=== PATIENT | female | born 1990 | race Caucasian/White ===

== ENCOUNTER 2024-07-26 00:19 | Day surgery (SDC) | payer OTHER, SELFPAY ==
[2024-07-21 08:22] VITALS: BMI 22.7
--- NOTE | 2024-07-21 08:33 | PC.NURSE ---
Report to the Outpatient Waiting Room, entrance under the green pavilion located off [facility], at time 1130 on date 07/26/2024. Planned Procedure Time: 1330.? Time changes happen often and if your time is changed the preop area will call you the afternoon before. - You and your visitor will be asked to self-screen and do not enter if you have any COVID symptoms. Please call surgeon if you need to reschedule. - A mask is optional within the hospital at this time. Patients may have clear liquids (water, carbonated beverages, clear teas, apple juice) until 3 hours prior to surgery with a maximum of 20 ounces. - No food from midnight until time of surgery and no smoking, or chewing tobacco (or any form of nicotine). No chewing gum, candy or mints. Take only the following medications with a SIP of water on the morning of surgery: N/A DO NOT STOP ANY OF YOUR OTHER PRESCRIPTION MEDICATIONS PRIOR TO SURGERY EXCEPT THE FOLLOWING Hold all vitamins and supplements for 3 days per anesthesiologist. Medications to discontinue per physician: Magnesium- Per patient stopping 07/21/2024 Please no make-up, nail andorran, hairspray, perfume, deodorant, or body powder the day of surgery.? No jewelry (including any body piercings) or valuables the day of surgery, leave them at home.? Please take a shower or bath the night before, or the morning of, surgery with an antibacterial soap.? Wear comfortable, loose fitting clothing.? Children are encouraged to wear pajamas. - Jewelry must be removed prior to entering the operating room.? Rings and piercings that are not removed may be cut off. - The hospital will not accept responsibility for valuables.? - Please leave all valuables, including medications, at home the day of surgery. If you are going home after surgery, a licensed pile driver operator must drive you home.? - NO public transportation without another adult if you receive anesthesia. - We recommend that an adult stay with you for 24 hours following discharge. - We also recommend that you do not drive, make important decision, drink alcoholic beverages, or take any drugs that were not prescribed by your health care provider for at least 24 hours after your discharge time. Follow any additional instructions given to you from your surgeon. Telephone instructions given to ____Patient and asked if any additional questions and then verbalized understanding. Patient advised to call surgeon office or pre surgery nurse liaison [phone] if any additional questions.
[2024-07-26] VITALS (9 sets, daily range): BP systolic 100–131; BP diastolic 64–82; PULSE 63–95; RESP 14–18; TEMP 36.6–36.9; O2SAT 95–100
--- OUTSIDE RECORDS SUMMARY | 2024-07-26 00:21 | XMS_ITS | Continuity of Care Document ---
Author Organization [facility] Address [address] [place] [address] Phone Care Team Providers Care Photolithographer Name Role Phone Fernando Sim NP Unavailable Unavailable Allergies, Adverse Reactions, Alerts Substance Reaction Status Criticality No Known Allergies Active No Inform ation Medications Medication Instructions Dosage Effective Dates (start - stop) Status Comments sertraline 50 mg tablet take 1 tablet by oral route every day 50 MG - Active Procedures Procedure Date URINALYSIS NONAUTO W/O SCOPE OFFICE/OUTPATIENT VISIT, EST OFFICE/OUTPATIENT VISIT, EST Rapid COVID OFFICE/OUTPATIENT VISIT, EST Rapid COVID OFFICE/OUTPATIENT VISIT, EST URINALYSIS NONAUTO W/O SCOPE OFFICE/OUTPATIENT VISIT, EST OFFICE/OUTPATIENT VISIT, EST OFFICE/OUTPATIENT VISIT, EST OFFICE/OUTPATIENT VISIT, EST Advance Directives Directive Yes / No Effective Date File Name No Information Encounters Encounter Description Practice Location Reason(s) For Visit Diagnoses Date Provider Providers Copied on Encounter [facility], [address] [place] [address], [facility], tel:[phone] Rex No Information 4 Roney King. [address] [place] [address], [facility], . tel:[phone] OFFICE/OUTPA TIENT VISIT, EST [facility], [address] [place] [address], [facility], [place] [phone] Rex UTI (chief complaint) Painful micturition, unspecifiedUri nary symptom or signSuprapubic painUrinary tract infection in female 4 Roney Fernando. [address] [place] [address], [facility], [place]. tel:[phone] OFFICE/OUTPA TIENT VISIT, [facility], [address] [place] [address], [facility], [place] [phone] [facility] est care (chief complaint) Generalized anxiety disorderEncoun ter to establish careSyncope, unspecified syncope typeEncounter for lipid screening for cardiovascular disease 3 Tevin Ordoñez. [address] [place] [address], [facility], [place]. tel:[phone] OFFICE/OUTPA TIENT VISIT, [facility], [address] [place] [address], [facility], [place] [phone] Rex COVID TEST (chief complaint) Contact With And (suspected) Exposure To COVID-19 2 Rhiannajosepratik Durbin. [address] [place] [address], [facility], [place]. tel:[phone] OFFICE/OUTPA TIENT VISIT, [facility], [address] [place] [address], [facility], [place] [phone] Rex COUGH (chief complaint) COVID SYMPTOMS (chief complaint) COVID-19 2 Farrah Bowden. [address] [place], [address], [place]. tel:[phone] OFFICE/OUTPA TIENT VISIT, [facility], [address] [place] [address], [facility], [place] tel:[phone] [facility] UTI (chief complaint) Cramping/F req (chief complaint) Urinary tract infection, site not specified 9 Jesus Simmons. [address] [place] [address], [facility], [place]. tel:[phone] OFFICE/OUTPA TIENT VISIT, [facility], [address] [place] [address], [facility], tel: [phone] [facility] HEADACHES. . (chief complaint) Acute sinusitis 8 Jesus Simmons. [address] [place] [address], [facility], . tel:[phone] OFFICE/OUTPA TIENT VISIT, [facility], [address] [place] [address], [facility], tel:[phone] Rex Cough (chief complaint) Upper respiratory infection, acute 6 Carly Valles. [address] [place] [address], . tel:[phone] OFFICE/OUTPA TIENT VISIT, [facility], [address] [place] [address], [facility], tel:[phone] [facility] Sore throat (chief complaint) fever (chief complaint) Sinusitis 5 Jesus Iris. [address] [place] [address], [facility], . tel:[phone] [facility], [address] [place] [address], [facility], tel:[phone] [facility] No Information Nov-0 3 No Information Family History Family Member Type Diagnosis Age At Onset Father Problem (finding) hypertension Maternal grandmother Problem cancer Father Problem (finding) Pacemaker Mother Problem (finding) malignant neop lasm of breast in first degree relative Father Problem heart attack Maternal grandmother Problem Diabetes mellitus Paternal grandmother Problem Diabetes mellitus Mother Problem Mental disorder Mother Problem (finding) manic-depressive state Immunizations Vaccine Date Status Comments flu (split) (3 yrs or older) preservative free administered Source: Other Regist ry flu (split) (3 yrs or older) preservative free administered Source: Other Regist ry HPV (quadrivalent) administered Source: O ther Registry HPV (quadrivalent) administered Source: O ther Registry flu (split) (3 yrs or older) preservative free administered Source: Other Regist ry flu (split) (3 yrs or older) preservative free administered Source: Other Regist ry flu (split) (3 yrs or older) preservative free administered Source: Other Regist ry Payers Payer name Insurance type Covered democrat ID Authoriza tion(s) No Information Social History Type Description Quantity Date Captured Comments Alcohol Use Details Unknown Caffeine Use Details Unknown Tobacco Use Status No Information Smoking Status No Information Sex Female Chief Complaint And Reason For Visit No Information Reason For Referral Reason For Referral No Information Plan Of Treatment Date Type Action Status Goal HPV. Due on due Goal Influenza vaccine. Due on due Goal Pap/HPV testing. Due on due Goal Unhealthy drug u se screening. Due on due Goal Hepatitis C scre ening. Due on due Goal Depression scree klaus. Due on due Goal Tdap. Due on due Goal Td vaccine. Due on due Goal Hepatitis C scre ening. Due on due Goal Tdap. Due on due Goal Influenza vaccine. Due on due Goal Depression scree klaus. Due on due Goal Unhealthy drug u se screening. Due on due Goal HPV. Due on due Goal Td vaccine. Due on due Goal Pap/HPV testing. Due on due Goal Unhealthy drug u se screening. Due on due Goal HPV. Due on due Goal Hepatitis C scre ening. Due on due Goal Pap/HPV testing. Due on due Goal Influenza vaccine. Due on due Goal Tdap. Due on due Goal Td vaccine. Due on due Goal Depression scree klaus. Due on due Goal Influenza vaccine. Due on due Goal Pap/HPV testing. Due on due Goal Depression scree klaus. Due on due Goal Td vaccine. Due on due Goal HPV (1st) due Goal Tdap. Due on due Patient Education Urinary Tract Infection in Women: Care Instructions completed Patient Education Cholesterol an d Triglycerides Tests: About These Tests completed Patient Education Coronavirus Disease ([place] VID-19): Care ~ completed Future Order: Lab Order CBC W/DI FF ([id number]), Sent on: Sent Future Order: Lab Order CMP ([id number]), Se nt on: Sent Future Order: Lab Order LIPID PA EUGENIO ([id number]), Sent on: Sent Future Order: Lab Order TSH REFL EX FREE T4 ([id number]), Sent on: Sent History Of Present Illness Encounter Date Complaint History Of Prese nt Illness Comments: (The p atient is a 33-year-old female with a medical history of anxiety that presents to clinic with complaints of urinary frequency, painful urination, suprapubic pressure, urgency for the past 7 days. Aggravating factors urination, relieving factors none, treatments tried increasing water intake remedies. Patient denies chest pain, shortness of breath, fever, vomiting, focal changes, flank pain, change in bowel habitus consistency, chance of STIs, increased vaginal discharge, or any other acute symptoms.) UTI Onset: 7 Days. T he severity of the problem is moderate. Pain scale: 5/10. The problem has not changed. The symptoms are recurring. Presenting/Initial symptoms include abdominal pain, dribbling, dysuria, frequency, lower back pain and urgency. Symptoms are associated with recurring urinary tract infections. Symptoms are not associated with diabetes, or recent catheterization. Aggravating factors include urination. Symptoms are relieved by increased fluids and rest. Associated symptoms include abdominal pain, dribbling, dysuria, frequency, pelvic pain, pressure and urgency. Pertinent negatives include fever. Additional information: increased water intake & cranberry juice. Comments: 31 yea r old female patient presents today to [facility] care. Previously patient saw Dr. Larry for primary care. A complete medical, surgical, family, and social history were reviewed with patient and documented. Patient has dental exams yearly, she has not had an eye exam for a few years, she plans to have one soon. Patient is up to date on preventative screenings and vaccines. Patient does not use illicit drugs, tobacco, or drink alcohol. A comprehensive review of systems and exam were also completed today. Patient's current medications were reviewed. Patient has no current complaints today.She does mention that she had a visit to [facility] ER last weekend due to having a syncopal event while taking a shower. While in the ER she become nauseated as well. She was given IV fluids and sent home. Later her MEDICAL SURGERY NURSE called her stating that he had received her records from the ER and her EKG was abnormal, he then sent her to a street engineer. She saw her street engineer yesterday and her repeat EKG was normal, she is now scheduled for an echo in September. She continues to feel slightly weak and dizzy at times. She has had no other syncopal events. She plans to follow up with her street engineer, have fasting labs completed, and then follow up at this office. She has no other concerns today. [facility] COVID TEST Pt presents for COVID test for work. Pt has to be present a negative COVID test for work to be able to travel to [place]. Pt is vaccinated x3. COVID TEST (comments) Sabrina is a 31-year old female who presents to the clinic today needing a Covid test for work. She states that she is needing a Covid test to be able to travel to [place] for her job. She is asymptomatic. She has been vaccinated with booster. She offer no other concerns or complaints at this time. COUGH COVID SYMPTOMS PT PRESENTS WITH COUGH, TIGHTNESS IN CHEST, NO FEVER, FATIGUE, DENIES EXPOSURE AND HAS BEEN VACCINATED. HER SECOND VACCINATION WAS LAST THURSDAY.RAPID COVID POSITIVE. COUGH (comments) Pt presents to the clinic with complaints of a non productive cough, chest tightness, and fatigue for 1 day. Pt states that she recently received her second covid vaccine on Thursday. PT denies any chance of but states that she is currently breast feeding. PT denies fever, sob, wheezing. UTI Cramping/Freq Pt here to see P sidney for sudden onset 3 days ago with cramping and frequency. She has been drinking cranberry juice and extra fluids with no improvement. Pt states she has had UTI in the past and most relieves with increased fluids. jose FRAGA HEADACHES.. Patient states t hat for past few days she has been experiencing very bad headaches behind both ears. She gets very nauseated and lethargic feeling with them also. She has never experienced bad headaches such as these before. HEADACHES.. (comments) Patient p resents today with complaints of headaches. She reports that she very rarely has headaches and if she does they are never like these. She reports it feels like there is a bar driving through her head behind both ears. She does state the headaches are worse when she leans forward. She states that Aleve helps with the headaches but the headaches come back within a couple hours. At the worst headaches are rated at a 7 out of 10. She does complain of nausea with the headaches and some vision changes while she has the headaches. She states that bright light makes it worse and that she does have some sound and light sensitivity with the headaches. 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 She reports that the headache yesterday was the worst one she has had and yesterday she had a very bad day at work. Cough Onset: 10 days a go. The patient describes the cough as barking, hacking and productive (of clear sputum). It occurs persistently. The problem has not changed. Symptoms are aggravated by cold air, exertion, laughing and lying down. There are no relieving factors. Associated symptoms include chills, cough, dyspnea, dyspnea on exertion, fatigue, fever, hemoptysis, hoarseness, night sweats, post-nasal drainage, rhinitis, sinus pressure and wheezing. Pertinent negatives include epistaxis, heartburn, nasal congestion, pleuritic pain, rhinorrhea, sore throat and weight loss. The patient has a history of allergies. The patient does not have a history of asthma. Additional information: She was seen at [facility] on 02/11/16 and given 5 days of Amoxicillin & cough med she finished all her meds on 02/15/16 with no improvemnet at all. fever Additional infor jessika: Sinus pain and pressure, body aches, ear pressure, sorethroat, hard to swallow and fever, started Thursday evening. Sore throat Functional Status Date Functional Assessmen t No Information Instructions Date Instruction Additional Infor mation Take antibiotic as d irected, take all medication even if improved. Drink plenty of fluids especially water, wipe front to back, avoid douching, empty the bladder before and immediately following sexual intercourse, and avoid tight fitting clothing. Avoid irritants such as scented feminine products, scented pads or tampons, and scented bath soaps. Monitor for worsening signs and symptoms, return to the clinic or present to the emergency room should your condition worsen. Related to Urinary tract infection in female Continue home medica tion. Continue follow up with street engineer. Have labs completed soon. Continue to observe for worsening signs and symptoms and seek care as needed. Related to Generalized anxiety disorder Rapid Covid is negat joel.Work note with results given to patient.Follow up with PCP or return to clinic as needed. Related to Contact With And (suspected) Exposure To COVID-19 Report to the ER if sx persist. Related to COVID-19 Tylenol and vitamins as directed Related to COVID-19 Rest, increase intake of fluids. Related to COVID-19 Self isolate for 10 days. Relate d to COVID-19 Cleanse from front to back Relat ed to Urinary tract infection, site not specified Observe for persiste nt or worsening symptoms Related to Urinary tract infection, site not specified Empty bladder frequently Related to Urinary tract infection, site not specified Increase fluids Related to Urina ry tract infection, site not specified Medications as discussed Related to Urinary tract infection, site not specified Void before and after intercours e Related to Urinary tract infection, site not specified Use only unscented products Rela jose carlos to Urinary tract infection, site not specified If symptoms not impr simba in 7 days repeat urinalysis Related to Urinary tract infection, site not specified Patient instructed o n use of Flonase or Nasacort. Related to Acute sinusitis Educated on use of antibiotic Re lated to Acute sinusitis RTC for symptoms fern t persist or worsen in one week Related to Acute sinusitis Observe for medication side effe cts Related to Acute sinusitis OTC sinus medications as discuss ed Related to Acute sinusitis reccomended CXR pt would rather wait Related to Upper respiratory infection, acute take medication as p rescribed, f/u with PMD rtc or ER if SOB Related to Upper respiratory infection, acute increase fluids Related to Upper respiratory infection, acute Antibiotic as discussed Related to Sinusitis Nasal spray as discussed. Relate d to Sinusitis Assessments Type Assessment Date No Information Patient Care Teams Name Effective Dates (start - stop) Status Members No Information
--- OUTSIDE RECORDS SUMMARY | 2024-07-26 00:21 | XMS_ITS | Clinical Summary ---
Author Organization [facility] Address [facility] [place] [address] Care Team Providers Care Forestry Technical Officer Name Role Phone Luis Saleh MD Unavailable [phone] Hoda Chiu MD Unavailable Smita Abarca NP Primary Care Provider [phone] Allergies No known active allergies Medications hydrOXYzine (ATARAX) 25 MG tablet Take 1 tablet (25 mg total) by mouth as needed. 08/12/2022 Active sertraline (ZOLOFT) 50 MG tablet Take 1 tablet (50 mg total) by mouth daily. 08/12/2022 Active Active Problems No known active problems Family History Medical History Relation Comments Heart Attack Father Stroke Maternal Grandfather Atrial fibrillation Sister 1 Open Heart Sister 2 Relation Status Comments Father Maternal Grandfather Sister 1 Sister 2 Social History Tobacco Use Types Packs/Day Years Used Date Smoking Tobacco: Never Alcohol Use Standard Drinks/Week Comments Yes 0 (1 standard drink = 0.6 oz pur e alcohol) socially Comments Unknown Sex and Gender Information Value Date Recorded Sex Assigned at Female 08/12/2022 1:58 PM CDT Legal Sex Female 4:18 PM CDT Gender Identity Female 08/12/2022 1:58 PM CDT Sexual Orientation Straight 08/12/2022 1: 58 PM CDT 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 on file Not on file Not on file Last Filed Vital Signs Vital Sign Reading Time Taken Comments Blood Pressure 112/72 08/14/2022 8:27 AM CDT Pulse 71 08/14/2022 8:26 AM CDT Temperature - - Respiratory Rate 18 08/14/2022 8:26 AM CDT Oxygen Saturation 100% 08/14/2022 8:26 AM CDT Inhaled Oxygen Concentration - - Weight 62.4 kg (137 lb 9.6 oz) 08/14/2022 8:26 A M CDT Height 170.2 cm (5' 7 ) 08/14/2022 8:26 AM CDT Body Mass Index 21.55 08/14/2022 8:26 AM CDT Plan of Treatment Health Maintenance Due Date Last Done Comments Cervical Cancer Screening Pap Smear (Age 30 to 64) Every 3 Years 1991 Annual Physical 09/19/1994 Hepatitis C 09/19/2009 Cervical Cancer Screening Pap with HPV Testing (Age 30 to 64) Every 5 Years 09/19/2021 Cervical Cancer Screening with HPV 09/19/2021 COVID-19 Vaccine ( season) 2023 10/14/2021, 04/09/2021, 03/19/2021 DTaP, Tdap and Td Vaccines (8 - Td or Tdap) 08/08/2030 08/08/2020, 08/12/2005, 10/16/1995, Additional history exists Hepatitis B Vaccines Completed 07/23/2001, 01/25/2001, 12/24/2000 Meningococcal Vaccine Aged Out 08/12/2005 No ramiro luisa eligible based on patient's age to complete this topic HPV Vaccines Completed 04/06/2009, 09/27, 04/22/2008 Meningococcal B Vaccine Aged Out No l onger eligible based on patient's age to complete this topic Pneumococcal Vaccine: Pediatrics (0 to 5 Years) and At-Risk Patients (6 to 49 Years) Aged Out No longer eligible based on patient's age to complete this topic RSV Immunizations Under 20 Months Aged Out No longer eligible based on patient's age to complete this topic Insurance [facility] Care Teams Forestry Technical Officer Relationship Specialty Start Date End Date Smita Abarca NP [address] [address] PCP - General Nurse Practitioner Family 08/14/22 Luis Saleh MD [address] [place] [id number] OBGYN 08/12/22 Hoda Chiu MD [address] [place] [address] [place] [employer] CARDIOVASCULAR DISEASE 08/12/22
--- OUTSIDE RECORDS SUMMARY | 2024-07-26 00:21 | XMS_ITS | Clinical Summary ---
Author Organization [facility] Address [address] [place] [address] Phone Care Team Providers Care Trailer Technician Name Role Phone NIXON MATTHEW, MANPREET ADAMES MD, NORY GROVER Primary Care Provider [phone] ext. [phone] Reason for Visit and Chief Complaint Date of injury: 09/30/2021, visit for: right hand pain, visit for: left hand pain - The Chief Complaint is: 7 WK POST FX OF DIGITS 3-5 OF LEFT HAND AND DIGITS 4-5 RT HAND. PT STATES LEFT HAND IS WELL,JUST STILL. STILL WEARING SPLINT ON RT 4TH Problems Includes: Problems addressed during this encounter and other active Problems Current Visit Onset Date Resolved Date Provider Jada marie Status Closed Fracture Distal Phalanx 3rd Finger Left 10/02/2021 ZEYNEP Monge Active Last Documented On 2 4:17PM ; [facility] Closed Fracture Distal Phala nx 4th Finger Left 10/02/2021 ZEYNEP Monge Active Last Documented On 2 4:16PM ; [facility] Closed Fracture 4th Finger M iddle Phalanx Right Hand 10/02/2021 ZEYNEP Monge Active Last Documented On 2 4:16PM ; [facility] Closed Fracture 5th Finger M iddle Phalanx Right Hand 10/02/2021 ZEYNEP Monge Active Last Documented On 2 4:14PM ; [facility] Closed Fracture 5th Finger M iddle Phalanx Left Hand 10/02/2021 ZEYNEP Monge Active Last Documented On 2 4:12PM ; [facility] Plan of Treatment She can use her left hand as tolerated. We encouraged her to continue to use her stax splint on her right ring finger. She was encouraged to keep his finger fully extended when she removes her splint and before putting it back on. We discussed needing to secure the more proximal edge of the splint around the PIP joint to give her the best outcome for her underlying Mallet finger on the right ring finger. We will see her back in one month with repeat x-rays of each hand. - Last Documented On 11/15/2021 9:42AM ; [facility] Instructions to patient Intervention and counseling on cessation of tobacco use Last Documented On 9:13AM ; [facility] Assessments Includes: Assessments from this encounter Findings - Closed fracture of the middle phalanx of the right fourth finger - Last Documented On 11/15/2021 9:42AM ; [facility] - Closed fracture of the middle phalanx of the right fifth finger - Last Documented On 11/15/2021 9:42AM ; [facility] - Closed fracture of the middle phalanx of the left fifth finger - Last Documented On 11/15/2021 9:42AM ; [facility] - Closed fracture of the distal phalanx of the left third finger - Last Documented On 11/15/2021 9:42AM ; [facility] - Closed fracture of distal phalanx of left fourth finger - Last Documented On 11/15/2021 9:42AM ; [facility] Instructions Includes: Instructions from this encounter Instructions to patient Intervention and counseling on cessation of tobacco use Last Documented On 9:13AM ; [facility] Medical Equipment - Implanted Devices Includes: Current Devices No Medical Equipment Recorded Medications Includes: Medications discussed during this encounter and other current Medications No Medications Taken Medications Administered Includes: Administered Medications from this encounter No Administered Medications Recorded Vital Signs Includes: Vital Signs from this encounter Vital Name 11/15/2021 09:14A Blood Pressure Sitting (mmHg) 138/80 Height (in) 68 Last Documented: On 11/15/2021 9:15AM ; [facility] Results Includes: Results discussed during this encounter No Results Recorded For Specified Dates History of Present Illness Includes: History of Present Illness from this encounter ROSMERY HAN is a 31 year old female. - Allergy list reviewed - Medication list reviewed Sabrina is here to follow-up on multiple fractures of the fingers of both hands. She states she's doing pretty well. She still notices some discomfort in the right ring finger. She continues to wear her stax splint. She states that it has come off a few times. She states that as her swelling has gone down that her splint gets a little bit more loosely. She states when she removes her splint, she notices that she still has a slight flexion deformity of the right ring finger. She denies any numbness or tingling. She denies any loss of range of motion as far as flexion goes of the fingers. She notices minimum tenderness on occasion on the left side. Original injury date was September 30. She's around seven weeks out from her injury Social History Description Last Updated Tobacco non-user 10/14/2021 Last Documented On 2 9:13AM ; [facility] No travel 08/13/2020 Last Documented On 2 9:13AM ; [facility] Current nonsmoker 08/13/2020 Last Documented On 2 9:13AM ; [facility] Smoking Status Unknown Procedures and Surgical History Includes: Procedures from this encounter Procedures Code Diagnosis Performing Provider Service L ocation Service Date intervention and counseling on cessation of tobacco use 4000F Last Documented On 2 9:13AM ; [facility] use of tobacco assessment performed 1000F Last Documented On 2 9:13AM ; [facility] 3 views of both hands were o btained today. These were independently reviewed. These were compared to previous films. This shows stable avulsion fragments of the ulnar side of the PIP joints the fifth fingers of both hands. There is improving stable distal phalanx fractures of the third and fourth fingers of the left hand. She has improved dorsal callous and radial side callous of the metal phalanx fracture of the right ring finger. No malalignment noted. No intra-articular step off noted Last Documented On 2 9:39AM ; [facility] Medical History Includes: Medical History addressed during this encounter Description Last Updated No exposure to a contagious disease 07/28 Last Documented On 2 9:13AM ; [facility] Date COVID symptoms started: August 1108/13/2020 Last Documented On 2 9:13AM ; [facility] No fall 08/13/2020 Last Documented On 2 9:13AM ; [facility] Family History Includes: Family History addressed during this encounter No Family History Recorded Review of Systems Includes: Review of Systems from this encounter Systemic: No fever, no chills, and no night sweats. Pulmonary: No cough. Hematologic: No easy bleeding and no tendency for easy bruising. Neurological: No sensory disturbances. Mental Status Includes: Mental Status from this encounter Description Oriented to time, place, and person Functional Status Includes: Functional Status from this encounter No Functional Status Recorded Physical Exam Includes: Physical Exam from this encounter Allergies Includes: Active Allergies No Known Allergies Encounters Encounter Provider Location Date Check-In Time Check-Out Time Diagnosis FOLLOW UP ZEYNEP Monge [facility] 2 8:58AM 9:34AM Closed Fracture 4th Finger Middle Phalanx Right Hand,Closed Fracture 5th Finger Middle Phalanx Left Hand,Closed Fracture 5th Finger Middle Phalanx Right Hand,Closed Fracture Distal Phalanx 3rd Finger Left,Closed Fracture Distal Phalanx 4th Finger Left Insurance Includes: Active Insurance Policies Plan Name Member ID Group # Subscriber Relationship Effect joel Dates - [facility] [id number] SABRINA HAN Self Clinical Notes Includes: Clinical Notes from this encounter No Clinical Notes Recorded
--- OUTSIDE RECORDS SUMMARY | 2024-07-26 00:21 | XMS_ITS ---
Author Organization [facility] Address [address] [place] [phone] Phone Care Team Providers Care Fire Alarm Mechanic Name Role Phone NIXON MATTHEW, MANPREET ADAMES MD, NORY GROVER Primary Care Provider [phone] ext. [phone] Problems Includes: Active, inactive, and resolved Problems All Visits Onset Date Resolved Date Provider Condition S tatus Closed Fracture Distal Phalanx 3rd Finger Left 10/02/2021 ZEYNEP Monge Active Last Documented On 2 4:17PM ; [facility] Closed Fracture Distal Phala nx 4th Finger Left 10/02/2021 ZEYNEP Monge Active Last Documented On 2 4:16PM ; [facility] Closed Fracture 4th Finger M iddle Phalanx Right Hand 10/02/2021 ZEYNEP Monge Active Last Documented On 2 4:16PM ; [facility] Closed Fracture 5th Finger M iddle Phalanx Right Hand 10/02/2021 ZEYNEP Monge Active Last Documented On 2 4:14PM ; [facility] Closed Fracture 5th Finger M iddle Phalanx Left Hand 10/02/2021 ZEYNEP Monge Active Last Documented On 2 4:12PM ; [facility] Plan of Treatment Findings Encounter Date She can use her left hand as [...] one month with repeat x-rays of each hand FOLLOW UP with ZEYNEP Monge 11/15/2021 Last Documented On 2 9:42AM ; [facility] She has some aluminum splint s that she can use for activity where she needs protection for her hands. She was encouraged to do that. She will maintain the use of her stax splint on the right ring finger and not allow that finger to bend at the DIP joint for another four weeks. She will need repeat x-ray of both hands when she follows up FOLLOW UP with ZEYNEP Monge 10/14/2021 Last Documented On 2 3:36PM ; [facility] She was placed in a stax spl int on the left third and fourth fingers as well as the right ring finger. We encourage carlos typing of the fourth and fifth fingers. We encouraged her to make sure she keeps her splint on on the right ring finger at all times as she does have a soft tissue mallet deformity. We discussed how this is a six week timeframe for this to heal. We gave her instructions on how to clean her finger without allowing her finger to bend. We did discuss how if heard DIP joint is flexed, that we will reset our timeframe of six weeks of healing. I want to see her back early next week with a repeat x-ray of the right hand as well as the left hand to follow her fractures. We did discuss how if her fracture of the middle failings of the right ring finger start to shorten or displace, we would consider screw placement for stabilization ORTHO ESTABLISHED PATIENT with ZEYNEP Monge 10/03/2021 Last Documented On 2 10:57AM ; [facility] Continue current medication COVID SICK V ISIT- ESTABLISHED PATIENT with [facility]EN [facility] 08/13/2020 Last Documented On 1 3:39PM ; [facility] Ordered patient will call r appointment as needed COVID SICK VISIT- ESTABLISHED PATIENT with [facility]ELSON CARE MANAGER [facility] 08/13/2020 Last Documented On 1 3:39PM ; [facility] Ordered return to the clinic if condition worsens or new symptoms arise COVID SICK VISIT- ESTABLISHED PATIENT with ZHEN NELSON CARE MANAGER [facility] 08/13/2020 Last Documented On 1 3:39PM ; [facility] The options include close observation CO VID SICK VISIT- ESTABLISHED PATIENT with [facility]EN NELSON CARE MANAGER [facility] 08/13/2020 Last Documented On 1 3:39PM ; [facility] The options include close observation SI CK VISIT with ZHEN NELSON CARE MANAGER [facility]NA-[facility] 01/12/2020 Last Documented On 0 6:06PM ; [facility] Watch for signs/symptoms of infection, return to the clinic if seen SICK VISIT with [facility]ELSON [facility]ARE MANAGER [facility] 01/12/2020 Last Documented On 0 6:06PM ; [facility] Instructions to patient Intervention and counseling on cessation of tobacco use Last Documented On 2 9:13AM ; [facility] Intervention and counseling on cessation of tobacco use Last Documented On 2 2:44PM ; [facility] Watch for signs/symptoms of infection, return to the clinic if seen Last Documented On 0 5:13PM ; [facility] Assessments Includes: Assessments for all patient encounters Findings Encounter Date Closed fracture of distal ph alanx of left fourth finger FOLLOW UP with ZEYNEP Monge 11/15/2021 Last Documented On 2 9:42AM ; [facility] Closed fracture of the dista l phalanx of the left third finger FOLLOW UP with ZEYNEP Monge 11/15/2021 Last Documented On 2 9:42AM ; [facility] Closed fracture of the middl e phalanx of the left fifth finger FOLLOW UP with ZEYNEP Monge 11/15/2021 Last Documented On 2 9:42AM ; [facility] Closed fracture of the middl e phalanx of the right fifth finger FOLLOW UP with ZEYNEP Monge 11/15/2021 Last Documented On 2 9:42AM ; [facility] Closed fracture of the middl e phalanx of the right fourth finger FOLLOW UP with ZEYNEP Monge 11/15/2021 Last Documented On 2 9:42AM ; [facility] Closed fracture of distal ph alanx of left fourth finger FOLLOW UP with ZEYNEP Monge 10/14/2021 Last Documented On 2 3:36PM ; [facility] Closed fracture of the dista l phalanx of the left third finger FOLLOW UP with ZEYNEP Monge 10/14/2021 Last Documented On 2 3:36PM ; [facility] Closed fracture of the middl e phalanx of the left fifth finger FOLLOW UP with ZEYNEP Monge 10/14/2021 Last Documented On 2 3:36PM ; [facility] Closed fracture of the middl e phalanx of the right fifth finger FOLLOW UP with ZEYNEP Monge 10/14/2021 Last Documented On 2 3:36PM ; [facility] Closed fracture of the middl e phalanx of the right fourth finger FOLLOW UP with ZEYNEP Monge 10/14/2021 Last Documented On 2 3:36PM ; [facility] Closed fracture of distal ph alanx of left fourth finger ORTHO ESTABLISHED PATIENT with ZEYNEP Monge 10/03/2021 Last Documented On 2 10:57AM ; [facility] Closed fracture of the dista l phalanx of the left third finger ORTHO ESTABLISHED PATIENT with ZEYNEP Monge 10/03/2021 Last Documented On 2 10:57AM ; [facility] Closed fracture of the middl e phalanx of the left fifth finger ORTHO ESTABLISHED PATIENT with ZEYNEP Monge 10/03/2021 Last Documented On 2 10:57AM ; [facility] Closed fracture of the middl e phalanx of the right fifth finger ORTHO ESTABLISHED PATIENT with ZEYNEP Monge 10/03/2021 Last Documented On 2 10:57AM ; [facility] Closed fracture of the middl e phalanx of the right fourth finger ORTHO ESTABLISHED PATIENT with ZEYNEP Monge 10/03/2021 Last Documented On 2 10:57AM ; [facility] Acute pharyngitis COVID SICK VISIT- ES TABLISHED PATIENT with ZHEN NELSON CARE MANAGER [facility]NA-[facility] 08/13/2020 Last Documented On 1 3:39PM ; [facility] Contact with and (Suspected) exposure to COVID-19 COVID SICK VISIT- ESTABLISHED PATIENT with [facility] NELSON CARE MANAGER [facility] 08/13/2020 Last Documented On 1 3:39PM ; [facility] Acute pharyngitis SICK VISIT with ZHEN BUITRAGO CARE MANAGER CNA-C 01/12/2020 Last Documented On 0 6:06PM ; [facility] Upper respiratory infection SICK VISIT with BRENDA NELSON CARE MANAGER CNA-C 01/12/2020 Last Documented On 0 6:06PM ; [facility] Instructions Includes: Instructions for all patient encounters Instructions to patient Intervention and counseling on cessation of tobacco use Last Documented On 2 9:13AM ; [facility] Intervention and counseling on cessation of tobacco use Last Documented On 2 2:44PM ; [facility] Watch for signs/symptoms of infection, return to the clinic if seen Last Documented On 0 5:13PM ; [facility] Medical Equipment - Implanted Devices Includes: Current and historical Devices No Medical Equipment Recorded Medications Includes: Current and historical Medications Past Medications on file Claritin 10 MG Oral Tablet 08/13/2020 - 10/03/2021 Pro vider: Diagnosis: Last Documented On 10/03/2021 10:18AM By RONNI SIEGEL LPN ; [facility] Medications Administered Includes: Administered Medications in patient's chart No Administered Medications Recorded Results Includes: Results from 07/27/2023 through 07/26/2024 No Results Recorded For Specified Dates History of Present Illness History of Present Illness not supported for this document type No History of Present Illness Recorded Social History Description Last Updated Tobacco non-user 10/14/2021 Last Documented On 2 3:36PM ; [facility] No travel 08/13/2020 Last Documented On 1 3:39PM ; [facility] Current nonsmoker 08/13/2020 Last Documented On 1 3:39PM ; [facility] Smoking Status Unknown Medical History Includes: Medical History in patient's chart Description Last Updated No exposure to a contagious disease 07/28 Last Documented On 1 3:39PM ; [facility] Date COVID symptoms started: August 1108/13/2020 Last Documented On 1 3:39PM ; [facility] No fall 08/13/2020 Last Documented On 1 3:39PM ; [facility] Family History Includes: Family History in patient's chart No Family History Recorded Review of Systems Review of Systems not supported for this document type No Review of Systems Recorded Mental Status No Mental Status Recorded Functional Status No Functional Status Recorded Physical Exam Physical Exam not supported for this document type No Physical Exam Recorded Allergies Includes: Active, inactive, and resolved Allergies No Known Allergies Insurance Includes: Active Insurance Policies Plan Name Member ID Group # Subscriber Relationship Effect joel Dates - [facility] [id number] OLESYA HAN Self Clinical Notes Includes: Signed Clinical Notes starting from 04/18/2022 No Clinical Notes Recorded
--- OUTSIDE RECORDS SUMMARY | 2024-07-26 00:21 | XMS_ITS | Clinical Summary ---
Author Organization [facility] Address [address] [place] [phone] Phone Care Team Providers Care Grader Patrol Name Role Phone NIXON MATTHEW, MANPREET ADAEMS MD, NORY GROVER Primary Care Provider [phone] ext. [phone] Reason for Visit and Chief Complaint NO SHOW Problems Includes: Problems addressed during this encounter and other active Problems All Visits Onset Date Resolved Date Provider Condition S tatus Closed Fracture Distal Phalanx 3rd Finger Left 10/02/2021 ZEYNEP Monge Active Last Documented On 2 4:17PM ; [facility] Closed Fracture Distal Phala nx 4th Finger Left 10/02/2021 ZEYNEP Monge Active Last Documented On 2 4:16PM ; [facility] Closed Fracture 4th Finger M iddle Phalanx Right Hand 10/02/2021 ZEYNEP Monge Active Last Documented On 2 4:16PM ; [facility] Closed Fracture 5th Finger M iddle Phalanx Right Hand 10/02/2021 ZEYNEP Monge Active Last Documented On 2 4:14PM ; [facility] Closed Fracture 5th Finger M iddle Phalanx Left Hand 10/02/2021 ZEYNEP Monge Active Last Documented On 2 4:12PM ; [facility] Plan of Treatment No Plan of Treatment Recorded Assessments Includes: Assessments from this encounter No Assessments Recorded Medical Equipment - Implanted Devices Includes: Current Devices No Medical Equipment Recorded Medications Includes: Medications discussed during this encounter and other current Medications No Medications Taken Medications Administered Includes: Administered Medications from this encounter No Administered Medications Recorded Results Includes: Results discussed during this encounter No Results Recorded For Specified Dates History of Present Illness Includes: History of Present Illness from this encounter No History of Present Illness Recorded Social History No Social History Recorded - Smoking Status Unknown Medical History Includes: Medical History addressed during this encounter No Medical History Recorded Family History Includes: Family History addressed during this encounter No Family History Recorded Review of Systems Includes: Review of Systems from this encounter No Review of Systems Recorded Mental Status Includes: Mental Status from this encounter No Mental Status Recorded Functional Status Includes: Functional Status from this encounter No Functional Status Recorded Physical Exam Includes: Physical Exam from this encounter No Physical Exam Recorded Allergies Includes: Active Allergies No Known Allergies Encounters Encounter Provider Location Date Check-In Time Check-Out Time Diagnosis NO SHOW ZEYNEP Monge [facility] 12/13/2021 9:13AM 11:59PM Insurance Includes: Active Insurance Policies Plan Name Member ID Group # Subscriber Relationship Effect joel Dates 1 - [facility] [id number] OLESYA HAN Self Clinical Notes Includes: Clinical Notes from this encounter No Clinical Notes Recorded
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
--- OUTSIDE RECORDS SUMMARY | 2024-07-26 00:21 | XMS_ITS ---
Care Plan - [facility] Created on: July 26, 2024 OLESYA HAN : 1990 Sex: Female Author Organization [facility] Address [address] [place] [phone] Phone Care Team Providers Care Provider Engagement Executive Name Role Phone NIXON MATTHEW, MANPREET ADAMES MD, NORY GROVER Primary Care Provider [phone] ext. [phone]
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
--- OUTSIDE RECORDS SUMMARY | 2024-07-26 00:21 | XMS_ITS | Clinical Summary ---
Author Organization [facility] Address [address] [place] [phone] Phone Care Team Providers Care Hospital Insurance Clerk Name Role Phone NIXON MATTHEW, MANPREET ADAMES MD, NORY GROVER Primary Care Provider [phone] ext. [phone] Reason for Visit and Chief Complaint CHART UPDATE Problems Includes: Problems addressed during this encounter and other active Problems Current Visit Onset Date Resolved Date Provider Arao n Status Closed Fracture Distal Phalanx 3rd Finger Left 10/02/2021 ZEYNEP Monge Active Last Documented On 2 4:17PM ; [facility] Closed Fracture Distal Phala nx 4th Finger Left 10/02/2021 ZEYNEP Monge Active Last Documented On 2 4:16PM ; [facility] Closed Fracture 4th Finger M iddle Phalanx Right Hand 10/02/2021 ZEYNEP Monge Active Last Documented On 2 4:16PM ; [facility] Closed Fracture 5th Finger M iddle Phalanx Right Hand 10/02/2021 ZEYNEP Monge Active Last Documented On 2 4:14PM ; [facility] Closed Fracture 5th Finger M iddle Phalanx Left Hand 10/02/2021 ZEYNEP Monge Active Last Documented On 2 4:12PM ; [facility] Plan of Treatment No Plan of Treatment [...] Illness Recorded Social History Description Last Updated No travel 08/13/2020 Last Documented On 2 4:17PM ; [facility] Current nonsmoker 08/13/2020 Last Documented On 2 4:17PM ; [facility] Smoking Status Unknown Medical History Includes: Medical History addressed during this encounter Description Last Updated No exposure to a contagious disease 07/28 Last Documented On 2 4:17PM ; [facility] Date COVID symptoms started: August 1108/13/2020 Last Documented On 2 4:17PM ; [facility] No fall 08/13/2020 Last Documented On 2 4:17PM ; [facility] Family History Includes: Family History addressed [...] Location Date Check-In Time Check-Out Time Diagnosis CHART UPDATE ZEYNEP Monge [facility] 2 4:11PM 11:59PM Insurance Includes: Active Insurance Policies Plan Name Member ID Group # Subscriber Relationship Effect joel Dates 1 - [facility] [id number] OLESYA HAN Self Clinical Notes Includes: Clinical Notes from this encounter No Clinical Notes Recorded
[2024-07-26] MEDS: LACTATED RINGERS 1,000 ML 30 ML IV CONT (12:00)
--- NOTE | 2024-07-26 12:35 | WPDHPUPDATE1 ---
History and Physical Update Update Date/Time: 07/26/24 12:35 History and Physical has been reviewed, including an updated exam of the patient. There are NO changes in the patient's condition. Risks, benefits, and alternatives have been discussed and questions answered. Patient agrees to proceed with procedure.
--- NOTE | 2024-07-26 12:35 | W.PM.PROC2 ---
Procedure Note - Detailed Date of Procedure 07/26/24 Pre-op Diagnosis micromastia Post-op Diagnosis Same Procedure Performed Bilateral augmentation mammaplasty Surgeon Michael Hare MD Anesthesia General Findings Bilateral Sarthak Price Soft Touch 445cc subfascial Right: REF# [id number] SN [id number] Left: REF# [id number] SN [id number] Description of Procedure She is here today for bilateral breast augmentation. Previously and again today the risks, benefits, alternatives were discussed in extensive detail. I wanted her to be very realistic about the risks involved as well as expectations. We discussed aftercare and what to monitor for. Made sure answered all of her questions to her satisfaction today and consent was obtained. Marked in the preoperative holding area with their verification. The patient was taken to the operating room placed supine on the operating table. Anesthesia was provided by anesthesiology. A surgical time-out was taken. We cleansed the skin and 1% lidocaine and 0.25% Marcaine with epinephrine was used anesthetize as a field block. She was prepped and draped in a standard sterile fashion. Tegaderm nipple Coffey were placed. A 15 blade used to make an incision along the inframammary fold. Dissection was continued at 45 degree angle until the chest wall as identified. I elevated a subfascial pocket in the appropriate dimensions based on our preoperative planning for the implant. I then copiously irrigated with saline solution and verified a strict hemostasis. Next the use a triple antibiotic and Betadine containing solution to irrigate the pocket. I washed my gloves with the triple antibiotic and Betadine solution. We washed the implant immediately upon opening it with this solution and only opened it when we needed it. I used implant funnel and no-touch technique. The implant was introduced into the pocket using the funnel. Having verified positioning of the implant this was closed using 2-0 PDS followed by 3-0 Monocryl in a running subcuticular 4-0 Monocryl followed by tissue glue. Fluffs and surgical bra were placed. Patient was awoke and taken to PACU without difficulty. All instrument sponge counts were correct at the end of the case. Estimated Blood Loss 30 Drains No Packing No Pathology None sent Complications No immediate complications Condition Stable Disposition PACU
[2024-07-26 12:45] LABS: BEDSIDEPREGUCG Negative (Negative)
--- NOTE | 2024-07-26 13:00 | WPDANESEPPF ---
Anes - Initial Pre Proc Eval Procedure: Operation Date: 07/26/24 13:30 Proposed Procedures p Bilateral Breast Augmentation - Michael Hare MD Date/Time: 07/26/24 13:00 Surgeon: Michael Hare MD Pre Op Diagnosis: micromastia Patient Data Age: 33 Gender: F Height: 1.7 m Weight: 71.3 kg Last Vital Signs Temp 98.4 F 07/26/24 12:46 Pulse 75 07/26/24 12:46 Resp 16 07/26/24 12:46 BP 113/66 07/26/24 12:46 Pulse Ox 99 07/26/24 12:46 O2 Del Method Room Air 07/26/24 12:46 Allergies Allergy/AdvReac Type Severity Reaction Status Date / Time No Known Allergies Allergy Verified 07/26/24 12:36 Home Medications ?Medication ?Instructions ?Recorded ?Confirmed ?Type magnesium L-lactate 84 mg 42 mg PO HS 07/21/24 07/21/24 History tablet,extended release (Magtab) Laboratory Tests 07/26/24 12:44 POC Urine HCG, Qual Negative (Negative) Patient hx anesthesia problems: none Family hx anesthesia problems: none Results Review: All pre-operative results and documents have been reviewed as part of the pre-operative evaluation. [facility] Social History Social History Smoking status: Former smoker Tobacco type: cigarettes and e-cigarettes/vaping Additional smoking assessment comments: very rare-social Alcohol intake: current Drinks per week: 2 Substance use: never Living arrangements: with family Spiritual care concerns: No Anes - Eval Final PreProcedure Day of Procedure 07/26/24 13:00 Patient weight: normal Lungs: normal air movement Airway: Mallampati scale class II Neurological: alert and oriented Last oral intake: >/= 8 hours ASA classification: I Emergent: no Anesthetic plan: proceed Anesthesia type and monitoring: general LMA and standard monitoring Results Review: All pre-operative results and documents have been reviewed as part of the pre-operative evaluation. Informed Consent: The patient's anesthetic plan and its attendant risks and benefits were discussed with the patient/family/POA. Questions were solicited and answers provided to the satisfaction of the patient/family/POA.
[2024-07-26] MEDS: BUPivacaine HCL 0.25% PF 30 ML VIAL INFILTRATE (13:03)
[2024-07-26] MEDS: TRANEXAMIC ACID 1,000MG/ISO100 1,000 MG/100 ML BAG 200 MG IVPB (13:03)
[2024-07-26] MEDS: ceFAZolin 2 GM/D5W 50 ML 2 GM/50 ML BAG IVPB (13:03)
[2024-07-26] MEDS: LIDO 1%/EPINEPHRINE 1:100,000 50 ML VIAL 30 ML INFILTRATE (13:03)
[2024-07-26] MEDS: NACL 0.9% IRRIG POUR BOTTLE 900 ML, GENTAMICIN SULFATE INJ 160 MG, ceFAZolin 2 GM, POVI... IRRIGATION (13:17)
[2024-07-26] MEDS: fentaNYL CITRATE INJ (*CRX) 100 MCG/2 ML VIAL 25 MCG IV PUSH ×2 (15:02→15:05)
[2024-07-26] MEDS: oxyCODONE HCL (*CRX) 5 MG TAB IR PO (15:37)
== END 2024-07-26 16:20 | disposition home or self-care (01) ==
PROVIDERS: Visit Provider Surgery Plastic and Reconstructive Surgery
PROC: (CPT 19325; principal; 2024-07-26 13:30)
DX: Z41.1 Encounter for cosmetic surgery (principal); N64.82 Hypoplasia of breast; D68.51 Activated protein C resistance; Z87.891 Personal history of nicotine dependence; Z80.3 Family history of malignant neoplasm of breast
CPT/HCPCS: 19325; A9270; J0690; J1100; J1580; J2003; J2004; J2250; J2405; J2704; J3010; J7120